=== PATIENT | female | born 2005 | race African-American/Black ===

== ENCOUNTER 2023-12-11 00:53 | Emergency (ER) | payer OTHER ==
[~2023-12-11] VITALS: Ht 165.1 cm; Wt 72.0 kg
[2023-12-11 01:20] VITALS: TEMP 98.5; O2SAT 100
[2023-12-11 02:06] VITALS: BP 134/71; PULSE 88; RESP 16
[2023-12-11] MEDS: HYDROCODONE/ACETAMINOPHEN 5/325MG TABLET PO ONE (02:06)
[2023-12-11] MEDS: LIDOCAINE HCL/PF 1% 10 MG/ML 5ML VIAL INFIL ONE (02:07)
[2023-12-11] MEDS: BACITRACIN ZINC OINT UDPKT TOP ONE (02:07)
[2023-12-11] MEDS ORDERED: AMOX1TAB16 MT (02:51)
[2023-12-11] MEDS ORDERED: BO1 TP (02:51)
[2023-12-11] MEDS ORDERED: IBUP-2028 MT (02:51)
[2023-12-11] MEDS ORDERED: SULF1TAB48 MT (02:51)
== END 2023-12-11 03:12 | disposition home or self-care (01) ==
LOC: ER 00:53
DX: N76.0 Acute vaginitis (principal)
CPT/HCPCS: 56405; 99284; J3490; Z7610 ×3; 10060; 99283